=== PATIENT | female | born 1950 | race Caucasian/White ===

== ENCOUNTER 2022-11-19 15:07 | Outpatient (CLI) | payer MEDICARE ==
--- NOTE | 2022-11-19 19:11 | XRAY Report ---
PROCEDURE: Lumbar Spine 2 View INDICATIONS: LOW BACK PAIN UNSPECIFIED TECHNIQUE: 3 view(s) of the lumbar spine were acquired. COMPARISON: None. FINDINGS: Bones: Generalized decreased osseous mineralization present. Vertebral body heights maintained. Disc space narrowing and hypertrophic facet joints in the lower lumbar spine associated with grade 2 ante rior spinal listhesis L4-5. No intrinsic osseous lesion. Soft tissues: Overlying bowel gas pattern is normal. No suspicious soft tissue calcifications. 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
== END 2022-11-19 15:08 | disposition home or self-care (01) ==
LOC: DI 15:07
PROVIDERS: ATTEND Nurse Practitioner
DX: M47.816 Spondylosis without myelopathy or radiculopathy, lumbar region (principal); M43.16 Spondylolisthesis, lumbar region; M51.36 Other intervertebral disc degeneration, lumbar region

== ENCOUNTER 2023-01-20 08:05 | Outpatient (CLI) | payer MEDICARE ==
--- NOTE | 2023-01-20 10:23 | MRI Report ---
PROCEDURE: LUMBAR SPINE WO INDICATIONS: LOW BACK PAIN TECHNIQUE: Noncontrast sagittal T1 spin echo and T2 fast echo, sagittal STIR, axial T1 and T2 fast spin echo thr ough the lumbar spine. In cases with scoliosis, additional coronal T2 fast spin echo may be performe d. COMPARISON: Plain film 11/19/2022 FINDINGS: Image quality: Adequate. Alignment and Curvature: 0.8 cm of anterolisthesis L4 on 5. Otherwise normal AP alignment. Bone Marrow: Type II degenerative endplate Modic changes in the lower thoracic spine. Lumbar marrow s ignal is normal. No acute vertebral body compression fractures. Spinal Cord: Conus medullaris terminates at the L1 level. Visualized cord demonstrates normal signa l and size. Paraspinous Soft Tissues: No paravertebral masses. T12-L1: Normal in appearance. L1-L2: Mild disc desiccation. L2-L3: Mild disc desiccation. Moderate facet arthropathy and ligamentum flavum hypertrophy cause p osterior central canal narrowing. Facet arthropathy causes mild right foraminal narrowing. L3-L4: Mild disc desiccation. Mild circumferential disc bulge. Severe facet and ligamentum flavum h ypertrophy causes posterior mild central canal narrowing. Mild bilateral foraminal narrowing. L4-L5: Disc desiccation and mild height loss. Posterior disc uncovering. Severe facet arthropathy a nd ligamentum flavum hypertrophy. Anterolisthesis and posterior element hypertrophy cause severe cent ral canal narrowing, effacing CSF space. Mild bilateral foraminal narrowing. L5-S1: Mild disc heterogeneity. There is a focal left central/lateral recess disc herniation and sl ight caudal extrusion, posteriorly displacing the left S1 lateral recess nerve root. Please see serie s 7 image 14 and sagittal series 3 image 12. Moderate facet arthropathy. Mild left foraminal narrowi ng. IMPRESSION: 1. Severe posterior element hypertrophy and arthropathy at L4-5 results in anterolisthesis and severe central canal stenosis. 2. Focal left lateral recess disc herniation at L5-S1. Correlate with left S1 radiculopathy. 3. Moderately severe facet arthropathy from L2-3 through L5-S1. Reviewed by: Deanna Jimenez MD on 01/20/2023 10:21 AM PST Approved by: Deanna Jimenez MD on 01/20/2023 10:21 AM PST Station ID: [id number]
== END 2023-01-20 08:06 | disposition home or self-care (01) ==
LOC: DI 08:05
PROVIDERS: ATTEND Physician Assistant
DX: M43.16 Spondylolisthesis, lumbar region (principal); M48.061 Spinal stenosis, lumbar region without neurogenic claudication; M51.27 Other intervertebral disc displacement, lumbosacral region; M47.816 Spondylosis without myelopathy or radiculopathy, lumbar region; M47.817 Spondylosis without myelopathy or radiculopathy, lumbosacral region

== ENCOUNTER 2023-04-02 09:44 | Outpatient (CLI) | payer MEDICARE, MEDICAID ==
[2023-04-02 11:59] LABS: BASOPHILS # (AUTO) 0.1 10^3/uL (0.0-0.1); BASOPHILS % (AUTO) 1.3 %; EOSINOPHILS # (AUTO) 1.3 10^3/uL (0.0-0.7); EOSINOPHILS % (AUTO) 12.9 %; HCT - HEMATOCRIT 41.9 % (37.0-47.0); HGB - HEMOGLOBIN 13.2 g/dL (12.0-16.0); LYMPHOCYTES % (AUTO) 29.7 %; MEAN CORPUSCULAR HEMOGLOBIN 30.6 pg (27.0-31.0); MEAN CORPUSCULAR HGB CONC 31.5 g/dL (32.0-36.0); MEAN CORPUSCULAR VOLUME 97.2 fL (81.0-99.0); MEAN PLATELET VOLUME 11.9 fL (7.9-10.8); MONOCYTES # (AUTO) 0.7 10^3/uL (0.0-1.0); MONOCYTES % (AUTO) 6.9 %; NEUTROPHILS % (AUTO) 49.1 %; PLT - PLATELET COUNT 319 10^3/uL (130-450); RED BLOOD COUNT 4.31 10^6/uL (4.20-5.40); RED CELL DISTRIBUTION WIDTH 12.1 % (12.0-15.0); WHITE BLOOD COUNT 10.2 x10^3/uL (4.8-10.8)
[2023-04-02 12:00] LABS: SLIDE REVIEW? Indicated
[2023-04-02 12:31] LABS: PLATELET ESTIMATE, MANUAL NORMAL (130-450,000) (NORMAL); PLATELET MORPHOLOGY NORMAL APPEARANCE (NORMAL); RBC MORPHOLOGY (MULTIPLE) NORMAL APPEARANCE (NORMAL)
[2023-04-02 12:34] LABS: ALBUMIN 3.9 g/dL (3.2-5.5); ALBUMIN/GLOBULIN RATIO 1.6 (1.0-2.2); ALKALINE PHOSPHATASE 65 IU/L (42-121); ALT ALANINE AMINOTRANSFERASE 15 IU/L (10-60); AST ASPARTATE AMINOTRANSFERASE 15 IU/L (10-42); BILIRUBIN,TOTAL 0.3 mg/dL (0.2-1.0); BUN - BLOOD UREA NITROGEN 16 mg/dL (6-20); CARBON DIOXIDE - CO2 30 mmol/L (21-32); CHLORIDE 105 mmol/L (101-111); CHOL/HDL RATIO 3.5 (<4.4); CHOLESTEROL 166 mg/dL; CREATININE 0.7 mg/dL (0.6-1.3); GFR - MDRD 82 (>89); GLUCOSE 122 mg/dL (74-104); HDL CHOLESTEROL 47 mg/dL; LDL CHOLESTEROL,CALCULATED 77 mg/dL; LDL/HDL RATIO 1.6 (<4.4); POTASSIUM 4.4 mmol/L (3.5-4.5); SODIUM 138 mmol/L (135-145); TOTAL PROTEIN 6.3 g/dL (6.4-8.9); TRIGLYCERIDES 209 mg/dL (48-352); VLDL CHOLESTEROL 42 mg/dL
[2023-04-02 12:54] LABS: CREATININE,URINE 55.7 mg/dL; MICROALBUM/CREATININE RATIO,UR 143.6 ug/mg (<30.0)
[2023-04-02 13:14] LABS: ESTIMATED AVERAGE GLUCOSE 111 mg/dL (70-100); HEMOGLOBIN A1c% 5.5 % (4.27-6.07)
[2023-04-02 14:44] LABS: THYROID STIMULATING HORMONE 0.03 uIU/mL (0.34-5.60)
== END 2023-04-02 09:45 | disposition home or self-care (01) ==
LOC: LAB.N 09:44
PROVIDERS: ATTEND Family Medicine
DX: I10 Essential (primary) hypertension (principal); E03.9 Hypothyroidism, unspecified; E78.5 Hyperlipidemia, unspecified; R73.03 Prediabetes
CPT/HCPCS: 36415; 80053; 80061; 82043; 82570; 83036; 83721; 84439; 84443; 85025

== ENCOUNTER 2023-06-06 13:05 | Outpatient (CLI) | payer MEDICARE, MEDICAID ==
[2023-06-06 18:21] LABS: ALBUMIN 4.2 g/dL (3.2-5.5); ALBUMIN/GLOBULIN RATIO 1.5 (1.0-2.2); BILIRUBIN,TOTAL 0.5 mg/dL (0.2-1.0); CALCIUM 11.6 mg/dL (8.5-10.3); CREATININE 0.8 mg/dL (0.6-1.3); POTASSIUM 4.8 mmol/L (3.5-4.5)
[2023-06-06 18:33] LABS: THYROID STIMULATING HORMONE 0.1 uIU/mL (0.34-5.60)
== END 2023-06-06 13:06 | disposition home or self-care (01) ==
LOC: LAB.N 13:05
PROVIDERS: ATTEND Family Medicine
DX: E83.52 Hypercalcemia (principal); E03.9 Hypothyroidism, unspecified; I48.0 Paroxysmal atrial fibrillation
CPT/HCPCS: 36415; 80053; 81599; 82330; 84439; 84443

== ENCOUNTER 2023-07-31 14:38 | Outpatient (CLI) | payer MEDICARE, MEDICAID ==
[2023-07-31 18:04] LABS: CALCIUM 11.4 mg/dL (8.5-10.3); CREATININE 0.9 mg/dL (0.6-1.3); POTASSIUM 4.6 mmol/L (3.5-4.5)
[2023-07-31 18:14] LABS: THYROID STIMULATING HORMONE 3.4 uIU/mL (0.34-5.60)
[2023-07-31 20:43] LABS: ESTIMATED AVERAGE GLUCOSE 120 mg/dL (70-100); HEMOGLOBIN A1c% 5.8 % (4.27-6.07)
[2023-08-01 07:10] LABS: VITAMIN D 25-HYDROXY 43.4 ng/mL (30.0-100.0)
[2023-08-01 11:12] LABS: CALCIUM IONIZED SERUM 5.8 mg/dL (4.5-5.6)
== END 2023-07-31 14:39 | disposition home or self-care (01) ==
LOC: LAB.N 14:38
PROVIDERS: ATTEND Family Medicine
DX: R73.03 Prediabetes (principal); E83.52 Hypercalcemia; E05.90 Thyrotoxicosis, unspecified without thyrotoxic crisis or storm
CPT/HCPCS: 36415; 80048; 82306; 82330; 82397; 82652; 83036; 83970; 84443

== ENCOUNTER 2023-09-10 14:48 | Outpatient (CLI) | payer MEDICARE, MEDICAID ==
--- NOTE | 2023-09-10 23:20 | DEXA Report ---
PROCEDURE: Dexa Spine and/or Hip INDICATIONS: HYPERPARATHYROIDISM TECHNIQUE: Dual energy x-ray absorptiometry (DEXA) was performed in the regions detailed below. COMPARISON: None. FINDINGS: Lumbar Spine: Bone Mineral Density 1.409 g/cm/cm,T score 1.9. Normal Left Femoral Neck: Bone Mineral Density 0.741 g/cm/cm, T score -2.1. Osteopenia Left Total Hip: Bone Mineral Density 0.812 g/cm/cm,T score -1.6. Osteopenia Left Forearm: Bone Mineral Density 0.679 g/cm/cm, T score 0.1. Normal (T score greater or equal to -1.0: NORMAL) (T score from -1.1 to -2.4: OSTEOPENIA) (T score less than or equal to -2.5 to: OSTEOPOROSIS) IMPRESSION: Osteopenia Patients with diagnosis of osteoporosis or osteopenia should have regular bone mineral density assess ment. For those eligible for Medicare, routine testing is allowed once every 2 years. Testing frequ ency can be increased for patients who have rapidly progressing disease or for those who are receivin g medical therapy to restore bone mass. Reviewed by: Lopez Chester MD on 09/10/2023 10:19 PM [facility] Approved by: Lopez Chester MD on 09/10/2023 10:19 PM [facility] Station ID: [id number]
--- NOTE | 2023-09-10 23:20 | DEXA Report ---
PROCEDURE: Dexa Spine and/or Hip INDICATIONS: HYPERPARATHYROIDISM TECHNIQUE: Dual energy x-ray absorptiometry (DEXA) was performed in the regions detailed below. COMPARISON: None. FINDINGS: Lumbar Spine: Bone Mineral Density 1.409 g/cm/cm,T score 1.9. Normal Left Femoral Neck: Bone Mineral Density 0.741 g/cm/cm, T score -2.1. Osteopenia Left Total Hip: Bone Mineral Density 0.812 g/cm/cm,T score -1.6. Osteopenia Left Forearm: Bone Mineral Density 0.679 g/cm/cm, T score 0.1. Normal (T score greater or equal to -1.0: NORMAL) (T score from -1.1 to -2.4: OSTEOPENIA) (T score less than or equal to -2.5 to: OSTEOPOROSIS) IMPRESSION: Osteopenia Patients with diagnosis of osteoporosis or osteopenia should have regular bone mineral density assess ment. For those eligible for Medicare, routine testing is allowed once every 2 years. Testing frequ ency can be increased for patients who have rapidly progressing disease or for those who are receivin g medical therapy to restore bone mass. Reviewed by: Lopez Chester MD on 09/10/2023 10:18 PM [facility] Approved by: Lopez Chester MD on 09/10/2023 10:18 PM [facility] Station ID: [id number]
== END 2023-09-10 14:49 | disposition home or self-care (01) ==
LOC: DI 14:48
PROVIDERS: ATTEND Family Medicine
DX: E21.3 Hyperparathyroidism, unspecified (principal); M85.89 Other specified disorders of bone density and structure, multiple sites